=== PATIENT | male | born 2000 | race Caucasian/White ===

== ENCOUNTER 2024-02-22 10:59 | Emergency (ER) | payer OTHER ==
[~2024-02-22] VITALS: Ht 162.6 cm; Wt 45.4 kg
[~2024-02-22 10:59] MED LIST: AMOCLA250S PO; CODACEE120 PO; RXCODACESY PO; TOBDEXOPSU OP
[2024-02-22 11:10] VITALS: BP 115/70
[2024-02-22] MEDS ORDERED: MIRT30 PO (11:14)
[2024-02-22] MEDS ORDERED: Amoxicillin/Clavulanate K 875 MG Tab PO ONE (12:25)
[2024-02-22] MEDS ORDERED: Diphth,Pertuss(Acell),Tet Vac 0.5 ML VIAL IM ONE (12:25)
[2024-02-22] MEDS ORDERED: AMOCLA875 PO (12:27)
== END 2024-02-22 13:00 | disposition home or self-care (01) ==
LOC: ER 10:59
DX: S01.452A Open bite of left cheek and temporomandibular area, initial encounter (principal); W54.0XXA Bitten by dog, initial encounter; Z79.899 Other long term (current) drug therapy; Z23 Encounter for immunization
CPT/HCPCS: 12001; 90471; 90715; 99283-25; A9270